=== PATIENT | female | born 1995 | race Two or more races ===

== ENCOUNTER → 2024-12-11 | Outpatient (CLI) | payer MEDICAID, SELFPAY ==
--- NOTE | 2024-12-11 15:00 | XR_ITS ---
Examination: Pelvic ultrasound, transabdominal, complete Technique: Transabdominal ultrasound of the pelvis performed using grayscale imaging Date and time of exam: December 11, 2024 1457 hours INDICATIONS: Irregular menses years FINDINGS: Uterus 9.0 cm endometrial stripe 0.4 cm No uterine mass or intrauterine gestation Right ovary 4.3 cm arterial flow 23 x 15 mm cyst Left ovary 3.6 cm arterial flow IMPRESSION: Right ovarian simple cyst 23 x 14 x 15 mm
--- NOTE | 2024-12-11 15:30 | XR_ITS ---
Examination: Retroperitoneal ultrasound, complete Technique: Multiple high resolution grayscale images of the retroperitoneum obtained, including kidneys and bladder. Exam date and time:December 11, 2024 1504 hours INDICATIONS: Pelvic pain beginning several weeks ago FINDINGS: Right kidney 13.0 cm cortex 1.9 cm Mild right hydronephrosis Left kidney 12.5 cm cortex 2.2 cm Minimal dilatation left renal calyces No bladder mass or bladder calculi Bladder prevoid volume 375 cc IMPRESSION: Mild right hydronephrosis Minimal dilatation left renal calyces, consider urinary tract infections
== END | disposition home or self-care (01) ==
LOC: CDIM 14:45
PROVIDERS: PCP Family Medicine; Referring Provider Obstetrics & Gynecology; Visit Provider Obstetrics & Gynecology
DX: N83.291 Other ovarian cyst, right side (principal); N13.30 Unspecified hydronephrosis
CPT/HCPCS: 76770; 76856